=== PATIENT | female | born 1955 | race Caucasian/White ===

== ENCOUNTER → 2021-03-08 13:40 | Outpatient (CLI) | payer MEDICARE, SELFPAY ==
--- NOTE | 2021-03-08 13:47 | CT_ITS ---
STUDY: CT ABDOMEN AND PELVIS WITHOUT CONTRAST REASON FOR EXAM: Female, 65 years old. KIDNEY STONES R/ FLANK PAIN/ UTI RADIATION DOSAGE (If Supplied By Facility): CTDIvol = ( 24.92 ) mGy, DLP = ( 1300.97 ) mGycm TECHNIQUE: Transaxial images were obtained from the dome of the diaphragm to the symphysis pubis without oral contrast, and without intravenous contrast. Sagittal and coronal images were reconstructed. Individualized dose optimization techniques were used for this CT. COMPARISON: None. FINDINGS: Minimal increased markings in the lingular segment of the left upper lobe suggestive of mild atelectasis and/or scarring. Coronary artery calcification. Normal liver. Normal gallbladder and extrahepatic biliary system. Normal spleen. Normal pancreas. Normal bilateral adrenal glands. Normal right kidney. There is a 1.4 cm hypodensity in the upper pole of the left kidney suggestive of possible cyst. Normal visualized stomach. Normal small intestine. There are scattered colonic diverticula consistent with diverticulosis. There is non-visualization of the appendix. There is atherosclerotic calcification of the abdominal aorta and its major visceral branches, without a demonstrated aneurysm. Normal inferior vena cava. Normal retroperitoneum. Normal urinary bladder. There is absence of the uterus consistent with a prior hysterectomy. Normal abdominal wall. There are diffuse degenerative changes of the visualized lumbar spine. Mild degree of anterior listhesis of L4 on L5 without spondylolysis. Facet joint osteoarthritis. CT/Abdomen/Pelvis without Cont IMPRESSION: Possible cyst in the upper pole of the left kidney. Electronically Signed: Tae Juarez MD at 14:46 EDT , Service support ,
== END ==
PROVIDERS: Referring Provider Urology; Visit Provider Urology
DX: N39.0 Urinary tract infection, site not specified (principal); R10.9 Unspecified abdominal pain; N20.0 Calculus of kidney
CPT/HCPCS: 74176

== ENCOUNTER 2022-01-15 13:07 | Observation (INO) | payer MEDICARE, SELFPAY ==
[2022-01-15] VITALS (10 sets, daily range): BP systolic 112–195; BP diastolic 56–83; PULSE 65–83; RESP 16–18; TEMP 35.9–36.7; O2SAT 95–98; BMI 43.9; BMI 45.6
--- NOTE | 2022-01-15 13:17 | EKG12_ITS ---
Test Reason : PALPS Blood Pressure : / mmHG Vent. Rate : 076 BPM Atrial Rate : 076 BPM P-R Int : 160 ms QRS Dur : 094 ms QT Int : 412 ms P-R-T Axes : 061 -44 -32 degrees QTc Int : 463 ms Sinus rhythm with Premature supraventricular complexes Left axis deviation Left ventricular hypertrophy Nonspecific ST abnormality Abnormal ECG Confirmed by GELY JEFFRIES, ANA ([id number]), tape editor ISAIAH GUIDRY ([id number]) on 01/25/2022 1:24:04 PM Referred By: LOCO Confirmed By:ANA HONG MD
--- NOTE | 2022-01-15 13:19 | CT_ITS ---
STUDY: CT BRAIN WITHOUT CONTRAST REASON FOR EXAM: Female, 66 years old. Dizziness, blurred VISION RADIATION DOSAGE (If Supplied By Facility): CTDIvol = ( 44.99 ) mGy, DLP = ( 779.24 ) mGycm TECHNIQUE: Transaxial CT imaging of the brain was performed without administration of intravenous contrast material. Individualized dose optimization techniques were used for this CT. COMPARISON: No relevant priors. FINDINGS: Normal soft tissue structures. Normal calvarium. There is mild cerebral atrophy with widening of the extra-axial spaces and ventricular dilatation. There are areas of decreased attenuation within the white matter tracts of the supratentorial brain, consistent with microvascular disease changes. There are small punctate calcifications of the basal ganglia which are seen in the aging brain as a normal variant. Normal brainstem. Normal cerebellum. There is no intracranial hemorrhage. There are no findings of an acute ischemic infarction. Atherosclerotic calcification of the vertebral arteries and cavernous portions of the internal carotid arteries bilaterally. Normal visualized paranasal sinuses. CT/Brain/Head without Contrast IMPRESSION: Chronic involutional changes of the brain. Electronically Signed: Tae Juarez MD at 13:40 EDT ,
[2022-01-15 13:35] LABS: Absolute Lymphocyte Count 1.07 X10^3/uL (0.83-4.51); Absolute Neutrophil Count 3.6 X10^3/uL (2.0-7.7); Basophil# 0.02 X10^3/uL; Basophil% 0.4 % (0-1); Eosinophil# 0.16 X10^3/uL; Eosinophils% 3.1 % (0-5); Hematocrit 35.7 % (37-47); Hemoglobin 11.1 g/dL (12.0-15.0); Lymphocyte # 1.07 X10^3/ul (0.83-4.51); Lymphocyte % 20.5 % (19-41); Mean Corp Hgb Conc 31.1 g/dL (32-36); Mean Corpuscular Hgb 23.9 pg (27.0-32.0); Mean Corpuscular Volume 76.9 fL (81-99); Mean Platelet Vol. 8.8 fl (6.2-12.0); Monocyte# 0.36 X10^3/uL; Monocyte% 6.9 % (0-10); NRBC Flagged by Analyzer 0 % (0-5); Neutrophil # 3.59 X10^3/uL (2.7-7.7); Neutrophil % 68.7 % (47-70); Platelet Count 219 K/mm3 (150-450); RBC Distribution Width CV 14.3 % (11.6-14.6); RBC Distribution Width SD 39.4 fl (35.1-43.9); Red Blood Count 4.64 M/mm3 (4.2-5.4); White Blood Count 5.2 K/mm3 (4.4-11.0)
[2022-01-15 13:48] LABS: Anion Gap 4 (5-15); BUN 13 mg/dL (7-18); BUN/Creat Ratio 11.7 RATIO (10-20); Chloride 99 mmol/L (98-107); Creatinine, Serum 1.11 mg/dL (0.55-1.02); EST Glomerular Filtration Rate 52 mL/min (>60); Est Glom Filt Rate - Afr Amer 63 mL/min (>60); Estimated Creatinine Clearance 34.84 ml/min; Glucose 141 mg/dL (74-106); Potassium 3.4 mmol/L (3.5-5.1); Sodium Level 135 mmol/L (136-145)
--- NOTE | 2022-01-15 14:15 | EX.ED.DYSGE1 ---
HPI History of Present Illness Chief Complaint: Dizziness Informant: patient Onset/Context/Timing Onset: Today Current Severity: Mild Maximum Severity: Moderate Narrative Narrative: Patient presents secondary to dizziness and vision change. She states that she felt well when she went to bed at 11:30 PM last evening. When she woke at 830 this morning she reports blurred vision worse in her right eye and being off balance when she walked. She states she had to hold onto items that she was walking this morning. She had 2 episodes where she felt like her heart was racing for just a few seconds at a time. She states she is had that previously with no problem. [facility] Medical History Fibromyalgia GERD (gastroesophageal reflux disease) HTN (hypertension) Thyroid cancer, medullary carcinoma Home Medications albuterol sulfate 2.5 mg INHALATION Q6H PRN PRN 09/14/15 [History Last Taken Unknown] chlorthalidone 25 mg PO QODAY 09/14/15 [History Last Taken Unknown] gabapentin 300 mg PO 4X/DAY 09/14/15 [History Last Taken Unknown] omeprazole 20 mg PO DAILY 09/14/15 [History Last Taken Unknown] acetaminophen [Tylenol Arthritis] 650 mg PO PRN PRN 01/15/22 [History Last Taken Unknown] calcium 600 mg PO QHS 01/15/22 [History Last Taken Unknown] levothyroxine 125 mcg PO DAILY 01/15/22 [History Last Taken Unknown] magnesium 400 mg PO QHS 01/15/22 [History Last Taken Unknown] melatonin 30 mg PO QHS 01/15/22 [History Last Taken Unknown] metoprolol succinate 25 mg PO DAILY 01/15/22 [History Last Taken Unknown] naproxen sodium [Aleve] 220 mg PO BID PRN 01/15/22 [History Last Taken Unknown] tizanidine 2 mg PO QHS PRN PRN 01/15/22 [History Last Taken Unknown] trazodone 50 mg PO QHS 01/15/22 [History Last Taken Unknown] Allergy/AdvReac Type Severity Reaction Status Date / Time acetaminophen [From Percocet] Allergy Itching Verified 01/15/22 13:24 citalopram hydrobromide Allergy Itching Verified 01/15/22 13:24 [From Celexa] duloxetine HCl Allergy Itching Verified 01/15/22 13:24 [From Cymbalta] Gadolinium-MRI Contrast Allergy Hives Verified 01/15/22 13:24 Medium [MRI] Iodinated Contrast Media [CT] Allergy Hives Verified 01/15/22 13:24 milnacipran HCl Allergy Itching Verified 01/15/22 13:24 [From Savella] oxycodone HCl [From Percocet] Allergy Itching Verified 01/15/22 13:24 sertraline HCl [From Zoloft] Allergy Itching Verified 01/15/22 13:24 shellfish derived Allergy Hives Verified 01/15/22 13:24 Sulfa (Sulfonamide Allergy Hives Verified 01/15/22 13:24 Antibiotics) tramadol Allergy Itching Verified 01/15/22 13:24 Surgical History H/O thyroidectomy H/O: hysterectomy History of right shoulder replacement Hx of total knee replacement Social History Smoking Status: Never smoker ROS ROS ED Constitutional Constitutional ED: Denies chills or fever(s) Eyes Eyes: Reports blurry vision and change in vision ENT ENT ED: Denies sore throat Cardiovascular Cardiovascular: Reports racing heartbeat; Denies chest pain Respiratory/Chest Respiratory/Chest: Denies cough or dyspnea Gastrointestinal Gastrointestinal: Denies abdominal pain, nausea or vomiting Genitourinary Genitourinary ED: Denies dysuria Musculoskeletal Musculoskeletal: Denies back pain or neck pain Integumentary Denies rash Neurologic Neurologic: Denies headache(s), paresthesias or weakness Allergic/Immunologic Allergic/Immunologic ED: Denies urticaria EXAM Physical Exam Const Vital Signs: 01/15/22 13:08 01/15/22 13:11 01/15/22 13:51 Temperature 96.6 F L 96.6 F L Temperature Source Temporal Temporal Pulse Rate 83 83 Respiratory Rate 16 16 Respiratory Effort Normal Non-Labored Respiratory Pattern Normal Blood Pressure 195/82 H 195/82 H Blood Pressure Mean 119 119 Pulse Ox 97 97 Oxygen Delivery Method Room Air Room Air 01/15/22 14:00 Temperature Temperature Source Pulse Rate 67 Respiratory Rate 18 Respiratory Effort Respiratory Pattern Blood Pressure 149/75 H Blood Pressure Mean 99 Pulse Ox 98 Oxygen Delivery Method Room Air Positive well nourished and well developed General Appearance ED: well developed HEENT Reports moist mucous membranes Eyes PERRL and EOMs intact bilaterally Neck supple Chest Wall inspection of chest normal and palpation of chest normal Resp normal respiratory effort and clear to auscultation bilaterally Cardio regular rate and regular rhythm GI normal to inspection, nondistended, normoactive bowel sounds and non-tender Palpation: soft Extremity normal to inspection Neuro oriented x3 and no sensory deficits noted Neuro Narrative: NIH equals 0 at the time of my exam. Sensorium / Orientation: alert Motor Exam: strength 5/5 throughout Psych mental status grossly normal Skin no rashes or lesions noted MDM MDM MDM Narrative Medical decision making narrative: Lab work and head CT along with EKG obtained per nursing protocol. Lab Data Attestation: I reviewed the patient's lab results. Labs: Laboratory Results - last 24 hr 01/15/22 01/15/22 13:24 13:24 WBC 5.2 RBC 4.64 Hgb 11.1 L Hct 35.7 L MCV 76.9 L MCH 23.9 L MCHC 31.1 L RDW Std Deviation 39.4 RDW Coeff of Irma 14.3 Plt Count 219 MPV 8.8 Immature Gran % (Auto) 0.400 Neut % (Auto) 68.7 Lymph % (Auto) 20.5 [place] % (Auto) 6.9 Eos % (Auto) 3.1 Baso % (Auto) 0.4 Absolute Neuts (auto) 3.6 Absolute Lymphs (auto) 1.07 Nucleated RBC % 0 Sodium 135 L Potassium 3.4 L Chloride 99 Carbon Dioxide 32.0 Anion Gap 4 L BUN 13 Creatinine 1.11 H Estim Creat Clear Calc 34.84 Est GFR (MDRD) Af Amer 63 Est GFR (MDRD) Non-Af 52 L BUN/Creatinine Ratio 11.7 Glucose 141 H Calcium 8.0 L Radiography Diagnostic Testing: Clinical Impression(s) from Imaging Studies Brain CT 01/15/22 13:19 IMPRESSION: Chronic involutional changes of the brain. Electronically Signed: Tae Juarez MD at 13:40 EDT , EKG Initial EKG: Attestation: I personally reviewed and interpreted this EKG as follows: Interpretation: Sinus Rhythm (Sinus at 76 with no acute ischemia.) Treatment and Re-Evaluation Narrative: At the time of my evaluation patient states that she was able to ambulate to the restroom back and did feel improved. Earlier today she had to hold onto items to walk. Because she does have this associated with vision change I do have more concern for possible stroke. She was hypertensive on arrival 195/82 but blood pressure is improved to 150 systolic at this time. I do have concern for TIA. Patient has allergy to CT and MRI contrast. I did recommend observation for noncontrast MRI. I will speak with hospitalist. Discharge Plan Triage Chief Complaint: Dizziness ED Provider: Katie Pearson Dx/Rx/DC Orders Clinical Impression: Brain TIA Prescriptions: No Action albuterol sulfate 2.5 MG/3 ML solution for nebulization 2.5 mg inhalation Q6H PRN PRN (Reason: Dyspnea) RF: 0 omeprazole 20 MG capsule 20 mg PO DAILY RF: 0 chlorthalidone 50 MG tablet 25 mg PO QODAY RF: 0 gabapentin 300 MG capsule 300 mg PO 4X/DAY RF: 0 calcium 600 mg Capsule 600 mg PO QHS RF: 0 tizanidine 2 mg Tablet 2 mg PO QHS PRN PRN (Reason: Muscle Spasm) RF: 0 trazodone 50 mg Tablet 50 mg PO QHS RF: 0 acetaminophen [Tylenol Arthritis] 650 mg Tablet Extended Release 650 mg PO PRN PRN (Reason: Pain) RF: 0 levothyroxine 125 mcg tablet 125 mcg PO DAILY RF: 0 metoprolol succinate 25 mg tablet extended release 24 hr 25 mg PO DAILY RF: 0 magnesium 200 mg Tablet 400 mg PO QHS RF: 0 naproxen sodium [Aleve] 220 mg Capsule 220 mg PO BID PRN (Reason: Pain) RF: 0 melatonin 10 mg Tablet 30 mg PO QHS RF: 0 Referrals: ELIZABETH ALLEN [Other] Disposition Disposition: Acute Care Hospital [facility]
--- NOTE | 2022-01-15 14:38 | NURSING ---
DR THORNTON FOR DR GARCIA
--- NOTE | 2022-01-15 14:41 | ECHOD_ITS ---
Reason For Study: TIA/CVA Procedure This was a 2D Doppler, Color Flow transthoracic echocardiogram. The exam was of adequate technical quality. Exam performed portable in patient room. Left Ventricle Normal LV size. Mid cavitary false tendon noted. Sigmoid septum. Left ventricular systolic function is normal. The estimated ejection fraction is 65 %. No evidence for diastolic dysfunction. No regional wall motion abnormalities noted. Right Ventricle Normal RV size. Normal systolic function. Atria Normal left atrium. Normal right atrium. No doppler evidence for ASD. Bubble contrast study negative for right to left interatrial shunt. Mitral Valve There is moderate mitral annular calcification. Extension of the mitral annular calcification onto the base of the posterior mitral valve leaflet. Mild (1+) mitral valve insufficiency. Tricuspid Valve Normal tricuspid valve. Mild tricuspid valve insufficiency. Right ventricular systolic pressure estimated to be 29 mmHg. Aortic Valve Trisinus/trileaflet aortic valve. Normal aortic valve. Mild (1+) aortic valve insufficiency. Pulmonic Valve The pulmonic valve is not well visualized. Trivial pulmonic valve insufficiency. Great Vessels Normal sized aortic root. Pericardium/Pleural No pericardial effusion. Medication Performed a rapid injection of agitated mix of 9 cc saline and 1cc air to assess for atrial septal defect. MMode/2D Measurements & Calculations LVIDd: 4.5 cm IVSd: 0.86 cm Ao root diam: 3.3 cm LVIDs: 2.2 cm LVPWd: 1.0 cm RVDd: 4.1 cm FS: 50.6 % LAV(MOD-bp): 57.4 ml LVAd ap4: 28.7 cm2 LVAd ap2: 30.1 cm2 LAV(MOD-bp) Indexed: 29.3 ml/m2 LVLd ap4: 8.0 cm LVLd ap2: 7.7 cm LAV(MOD-sp2): 61.8 ml EDV(MOD-sp4): 85.9 ml EDV(MOD-sp2): 93.6 ml LAV(MOD-sp4): 50.6 ml EDV(sp4-el): 87.7 ml EDV(sp2-el): 99.1 ml LVAs ap4: 16.0 cm2 LVAs ap2: 15.3 cm2 LVLs ap4: 6.7 cm LVLs ap2: 6.3 cm ESV(MOD-sp4): 34.2 ml ESV(MOD-sp2): 30.9 ml ESV(sp4-el): 32.4 ml ESV(sp2-el): 31.8 ml EF(MOD-sp4): 60.2 % EF(MOD-sp2): 67.0 % EF(sp4-el): 63.1 % SV(MOD-sp4): 51.7 ml SV(MOD-sp2): 62.7 ml SV(sp4-el): 55.3 ml LA A4 area: 18.4 cm2 LA dimension(2D): 3.7 cm RA A4 area: 14.5 cm2 Doppler Measurements & Calculations MV E max uri: 91.3 cm/sec Ao V2 max: 172.2 cm/sec AI max uri: 355.7 cm/sec MV A max uri: 130.0 cm/sec Ao max P.9 mmHg AI max P.6 mmHg MV E/A: 0.70 AI dec slope: 113.4 cm/sec2 AI P1/2t: 918.8 msec LV V1 max: 124.3 cm/sec PA V2 max: 131.0 cm/sec TR max uri: 254.2 cm/sec LV V1 max P.2 mmHg TR max P.9 mmHg ECHO/Echo Complete Interpretation Summary Left ventricular systolic function is normal. The estimated ejection fraction is 65 %. Mid cavitary false tendon noted. Sigmoid septum. There is moderate mitral annular calcification. Extension of the mitral annular calcification onto the base of the posterior mi tral valve leaflet. Mild (1+) mitral valve insufficiency. Mild tricuspid valve insufficiency. Mild (1+) aortic valve insufficiency. Trivial pulmonic valve insufficiency. Right ventricular systolic pressure estimated to be 29 mmHg. No evidence for diastolic dysfunction. Bubble contrast study negative for right to left interatrial shunt. Ordering Physician: Kayli Osman Performed By: Krystal Evans RCS
--- NOTE | 2022-01-15 14:41 | NURSING ---
PCU OBS NORBERTO TIA
--- NOTE | 2022-01-15 15:23 | ED.RN ---
Tala taking pt to MRI then taking her to the floor, gave TANJA Edgar 2 mg bottle of lorazepam to medicate her in MRI.
[2022-01-15] MEDS: LORazepam 2 MG/ML Syringe 1 MG IV (15:29)
--- NOTE | 2022-01-15 15:35 | MRI_ITS ---
EXAM: MR HEAD WITHOUT INTRAVENOUS CONTRAST CLINICAL INDICATION: stroke TECHNIQUE: Multiplanar and multisequence MR images of the brain were obtained without intravenous contrast. This report was created using [employer] report generation technology. COMPARISON: ct of the same day FINDINGS: BRAIN AND EXTRA-AXIAL SPACES: Chronic involutional changes of the brain. No intra- or extra-axial hemorrhage. No evidence of acute infarct. No intracranial mass or mass effect. There is preservation of the way/white matter interface. Posterior fossa structures are unremarkable. Ventricles are appropriate for age. No hydrocephalus. Basal cisterns are patent. SELLA: Unremarkable. Normal sella turcica, pituitary gland, infundibular stalk, optic chiasm and hypothalamus. AUDITORY SYSTEM: Unremarkable. The internal auditory canals are patent. BONES/JOINTS: Unremarkable. No discrete lytic or blastic abnormalities. SINUSES: Unremarkable as visualized. Clear. MASTOID AIR CELLS: Unremarkable as visualized. Clear. ORBITS: Unremarkable as visualized. Both globes, extraocular muscles, optic nerves and retrobulbar fat appear unremarkable. VASCULATURE: Unremarkable as visualized. Normal flow voids in the major intracranial circulation. MRI/Brain without Contrast IMPRESSION: Chronic involutional changes of the brain. Electronically Signed: Christofer Friedman MD at 16:19 EDT ,
--- NOTE | 2022-01-15 16:06 | NURSING ---
patient tolerated mri well. will be transported to pcu from mri by this rn now.
--- NOTE | 2022-01-15 17:26 | PCM.HP.STD ---
HPI - General General Date of Admission: 01/15/22 Date of Service: 01/15/22 Chief Complaint: Blurred vision/lightheadedness HPI Narrative KEELY WASSERMAN, is a 66 F who presented to the emergency department [facility] on 01/15/2022 with a chief complaint of blurred vision and lightheadedness since she woke up this morning. The patient states she was last known well before she went to bed last evening and woke up this morning with some mildly blurred vision that has been improving throughout the day and some lightheadedness. She initially complained of dizziness however she states that there was no spinning of the world around her or her spinning around the world. She states its been fairly constant and unrelenting however has improved since arrival in the emergency department. Her symptoms started at 830 this morning and she reported that her right eye was worse than her left eye. She also indicated that she has been having some off balance episodes while she has been walking and this has been fairly dramatic for her. She also complained of some palpitations/heart racing that has occurred for just seconds at a time and she has never experienced this before. She does indicate she has had the blurred vision and some lightheadedness previously but nothing that has persisted as long as this has. In the emergency department her overall vital signs had been fairly unremarkable other than elevated blood pressure of 195/82 on presentation. Her blood pressure did improve with her course in the emergency department and at the time of my evaluation was 149/75. Her CBC shows a chronic stable microcytic anemia with actual improvement of her hemoglobin. Her chemistry panel showed a sodium of 135, potassium of 3.4, serum creatinine of 1.1 which appears to be her baseline, slightly elevated glucose at 141. Her EKG is overall unremarkable and shows normal sinus rhythm with no ST-T changes consistent with acute ischemia. A CT of her brain was performed and showed chronic involutional changes of her brain but no acute abnormalities were identified. [facility] Medical History Chest pain Fibromyalgia GERD (gastroesophageal reflux disease) HTN (hypertension) Kidney stones Non-smoker Thyroid cancer, medullary carcinoma Home Medications albuterol sulfate 2.5 mg INHALATION Q6H PRN PRN 09/14/15 [History Last Taken Unknown] chlorthalidone 25 mg PO QODAY 09/14/15 [History Last Taken 04/02/22] gabapentin 600 mg PO BID 09/14/15 [History Last Taken 01/14/22] omeprazole 20 mg PO DAILY 09/14/15 [History Last Taken 01/14/22] acetaminophen [Tylenol Arthritis] 1,300 mg PO QHS 01/15/22 [History Last Taken 01/14/22] calcium 600 mg PO QHS 01/15/22 [History Last Taken 01/14/22] levothyroxine 125 mcg PO DAILY 01/15/22 [History Last Taken 01/15/22] magnesium 400 mg PO QHS 01/15/22 [History Last Taken 01/14/22] melatonin 30 mg PO QHS 01/15/22 [History Last Taken 01/14/22] metoprolol succinate 25 mg PO DAILY 01/15/22 [History Last Taken 01/15/22] naproxen sodium [Aleve] 220 mg PO BID PRN 01/15/22 [History Last Taken Unknown] tizanidine 2 mg PO QHS PRN PRN 01/15/22 [History Last Taken 01/14/22] trazodone 50 mg PO QHS 01/15/22 [History Last Taken 01/14/22] Allergy/AdvReac Type Severity Reaction Status Date / Time acetaminophen [From Percocet] Allergy Itching Verified 01/15/22 13:24 citalopram hydrobromide Allergy Itching Verified 01/15/22 13:24 [From Celexa] duloxetine HCl Allergy Itching Verified 01/15/22 13:24 [From Cymbalta] Iodinated Contrast Media [CT] Allergy Hives Verified 01/15/22 13:24 milnacipran HCl Allergy Itching Verified 01/15/22 13:24 [From Savella] oxycodone HCl [From Percocet] Allergy Itching Verified 01/15/22 13:24 sertraline HCl [From Zoloft] Allergy Itching Verified 01/15/22 13:24 shellfish derived Allergy Hives Verified 01/15/22 13:24 Sulfa (Sulfonamide Allergy Hives Verified 01/15/22 13:24 Antibiotics) tramadol Allergy Itching Verified 01/15/22 13:24 Family History (Updated 01/15/22 @ 17:[address] Kayli Osman DO) Other CAD (coronary artery disease) Hypertension Surgical History H/O thyroidectomy H/O: hysterectomy History of right shoulder replacement Hx of total knee replacement Social History (Updated 01/15/22 @ 17:[address] Kayli Osman DO) Smoking Status: Never smoker alcohol intake: current alcohol intake frequency: holidays/special occasions only substance use type: does not use ROS Constitutional Constitutional: Denies anorexia, change in weight, chills, fatigue, fever(s), malaise, night sweats, weakness or other Eyes Eyes: Reports blurry vision and change in vision; Denies change in eye color, discharge from eye(s), double vision, erythema, eye pain, loss of vision or other ENT HEENT: Denies abnormal hearing, dysphagia, ear pain, epistaxis, headache(s), hearing loss, nasal congestion, nasal discharge, post nasal drip, sinus pressure, sore throat or other Cardiovascular Cardiovascular: Reports lightheadedness; Denies chest pain, claudication, dyspnea on exertion, edema, orthopnea, palpitations, paroxysmal nocturnal dyspnea, rapid heart rate, syncope or other Respiratory/Chest Respiratory/Chest: Denies cough, dyspnea, excessive phlegm production, hemoptysis, productive cough, shortness of breath at rest, shortness of breath with exertion, wheezing or other Gastrointestinal Gastrointestinal: Denies abdominal pain, coffee ground emesis, constipation, diarrhea, dyspepsia, hematemesis, hematochezia, loose stools, melena, nausea, vomiting or other Genitourinary Genitourinary: Denies burning urination, difficulty urinating, dysuria, hematuria, nocturia, urinary frequency, urinary hesitancy, urinary incontinence, urinary urgency or other Musculoskeletal Musculoskeletal: Denies arthralgias, back pain, joint pain, joint stiffness, joint swelling, myalgias, neck pain or other Neurologic Neurologic: Reports dizziness; Denies abnormal gait, abnormal speech, confusion, disequilibrium, focal weakness, headache(s), numbness, paresthesias, seizure-like activity, seizures, syncope, tingling, tremor(s) or other Psychiatric Psychiatric: Reports anxiety; Denies depression, homicidal ideation, suicidal ideation or other Endocrine Endocrinology: Denies change in body appearance, cold intolerance, excessive sweating, heat intolerance, polydipsia, polyuria or other Hematologic/Lymphatic Hematologic/Lymphatic: Denies anemia, easy bleeding, easy bruising, lymphadenopathy or other Allergic/Immunologic Allergic/Immunologic: Denies rhinitis, hives, eczemia, asthma or other Vital Signs Vital Signs Vital Signs: 01/15/22 13:08 01/15/22 13:11 01/15/22 13:51 Temperature 96.6 F L 96.6 F L Temperature Source Temporal Temporal Pulse Rate 83 83 Respiratory Rate 16 16 Respiratory Effort Normal Non-Labored Respiratory Pattern Normal Blood Pressure 195/82 H 195/82 H Blood Pressure Mean 119 119 Blood Pressure Source Blood Pressure Position Blood Pressure Location Pulse Ox 97 97 Oxygen Delivery Method Room Air Room Air 01/15/22 14:00 01/15/22 15:00 01/15/22 15:39 Temperature 97.4 F L Temperature Source Temporal Pulse Rate 67 66 80 Respiratory Rate 18 17 16 Respiratory Effort Respiratory Pattern Blood Pressure 149/75 H 112/56 L 158/83 H Blood Pressure Mean 99 74 108 Blood Pressure Source Monitor Blood Pressure Position Supine Blood Pressure Location Left Arm Pulse Ox 98 96 97 Oxygen Delivery Method Room Air Room Air Room Air 01/15/22 15:54 Temperature Temperature Source Pulse Rate 66 Respiratory Rate 16 Respiratory Effort Respiratory Pattern Blood Pressure 146/63 H Blood Pressure Mean 90 Blood Pressure Source Monitor Blood Pressure Position Supine Blood Pressure Location Left Arm Pulse Ox 97 Oxygen Delivery Method Room Air Weight Weight: 102.058 kg Body Mass Index (BMI) 43.9 Physical Exam Const alert, oriented x3, no apparent distress, average body habitus, healthy appearing and well nourished Constitutional Narrative: Upper middle-aged white female sitting up in bed, morbidly obese, appears comfortable, nontoxic, at bedside General Appearance: cooperative HEENT normocephalic, head/scalp atraumatic, hearing grossly normal bilaterally and moist oral mucous membranes HEENT Narrative: Mallampati is 3, no thrush, dentures in place Eyes PERRL, EOMs intact bilaterally and conjunctivae normal Eyes Narrative: No scleral icterus Neck no lymphadenopathy, supple, no JVD and no carotid bruits Neck Narrative: Trachea midline, thyroid is absent, old surgical incision noted Resp normal respiratory effort, no retractions, no use of accessory muscles and clear to auscultation bilaterally Auscultation: Negative for crackles, rales, rhonchi or wheezes Cardio regular rate, regular rhythm, S1 normal heart sound, S2 normal heart sound, no murmurs, no rub, no gallops, no clicks and no JVD GI normal to inspection, nondistended, normoactive bowel sounds, soft to palpation, non-tender and non-distended; Negative for hepatosplenomegaly Extremity no clubbing, cyanosis or edema Peripheral Pulses: Yes pulses 2+ throughout Skin no rashes or lesions noted, no wounds, skin turgor normal, no jaundice, no petechiae and no mottling Neuro oriented x3, CN's II-XII intact bilaterally, moves all extremities and no focal motor deficits Neuro Narrative: Reflexes are 2+ bilateral upper and lower extremities, no clonus, no dysmetria Sensorium / Orientation: awake and alert Speech: speech normal Motor Exam: strength 5/5 throughout Psych affect normal Psych Narrative: Appropriately interactive Results Lab / Micro Data Attestation: I reviewed the patient's lab results. Result Diagrams: 01/15/22 13:24 01/15/22 13:24 Labs: Laboratory Results - last 24 hr 01/15/22 13:24: WBC 5.2, RBC 4.64, Hgb 11.1 L, Hct 35.7 L, MCV 76.9 L, MCH 23.9 L, MCHC 31.1 L, RDW Std Deviation 39.4, RDW Coeff of Irma 14.3, Plt Count 219, MPV 8.8, Immature Gran % (Auto) 0.400, Neut % (Auto) 68.7, Lymph % (Auto) 20.5, Webster % (Auto) 6.9, Eos % (Auto) 3.1, Baso % (Auto) 0.4, Absolute Neuts (auto) 3.6, Absolute Lymphs (auto) 1.07, Nucleated RBC % 0 01/15/22 13:24: Sodium 135 L, Potassium 3.4 L, Chloride 99, Carbon Dioxide 32.0, Anion Gap 4 L, BUN 13, Creatinine 1.11 H, Estim Creat Clear Calc 34.84, Est GFR (MDRD) Af Amer 63, Est GFR (MDRD) Non-Af 52 L, BUN/Creatinine Ratio 11.7, Glucose 141 H, Calcium 8.0 L Radiology Impression Brain CT 01/15/22 13:19 IMPRESSION: Chronic involutional changes of the brain. Electronically Signed: Tae Juarez MD at 13:40 EDT , Brain MRI 01/15/22 15:35 IMPRESSION: Chronic involutional changes of the brain. Electronically Signed: Christofer Friedman MD at 16:19 EDT , Assessment & Plan Assessment/Plan (1) Lightheadedness: (2) Blurred vision: (3) Hypokalemia: (4) Morbid obesity: PLAN: Blurred vision/lightheadedness -Patient woke up with the symptoms and they have persisted throughout the day -Admitted for stroke rule out with history of HTN and age -Check lipids -A1c -Check MRI of brain -Echocardiogram -We will perform carotid ultrasounds as patient has allergies to IVP dye as well as gadolinium and that makes us unable to perform an MRA or CTA -NIH's -Overall suspicion for stroke is fairly low -Aspirin 81 mg daily -Consider SOC neurology consultation depending on symptoms and diagnostic imaging Hypokalemia -60 mEq p.o. potassium -Repeat BMP in a.m. -Check a.m. magnesium and phosphorus level Hypertension -Continue home chlorthalidone every other day -Continue home metoprolol -Hold naproxen GERD -Continue PPI History of thyroid cancer status post thyroidectomy with resultant hypothyroidism -Continue levothyroxine -Check TSH Chronic pain secondary to fibromyalgia -Continue gabapentin 600 mg p.o. twice daily -Continue tizanidine Morbid obesity -Recommend weight loss -Complicates prognosis, treatment, outcomes Insomnia -Continue home trazodone -We will continue melatonin however home daily dose is reported at 30 mg which is 3 times the recommended dose and we will therefore just give 10 mg here -She may need to consider an alternative to melatonin for sleep aid DVT prophylaxis -Lovenox 40 mg grams subcu daily -SCDs CODE STATUS -Full code as per discussion in the emergency department Charges/Coding Visit Charges Inpatient E&M: 91559 Init Hosp L3
[2022-01-15] MEDS: Potassium Chloride Oral Tablet 20 MEQ 60 MEQ PO (18:20)
[2022-01-15] MEDS: Gabapentin 300 MG Capsule PO ×2 (18:20→22:01)
[2022-01-15] MEDS: Acetaminophen 325 MG Tablet 650 MG PO (19:54)
[2022-01-15] MEDS: MELATONIN 10 MG TABLET PO (22:00)
[2022-01-15] MEDS: Magnesium Chloride 64 MG Delay Rel.Tablet 128 MG PO (22:00)
[2022-01-15] MEDS: traZODone 50 MG Tablet PO (22:00)
[2022-01-16] VITALS (10 sets, daily range): BP systolic 120–168; BP diastolic 52–69; PULSE 68–86; RESP 12–16; TEMP 36.2–36.8; O2SAT 94–98; BMI 45.6
[2022-01-16] MEDS: Levothyroxine 125 MCG Tablet PO (05:51)
--- NOTE | 2022-01-16 05:55 | CDU_ITS ---
Reason For Study: dizziness Rt. Velocities/BP Lt. Velocities/BP Prox CCA 89.1/14.7 cm/sec. Prox CCA 70.6/14.6 cm/sec. Mid CCA 59.1/14.7 cm/sec. Mid CCA 69.6/20.1 cm/sec. Dist CCA 69.5/18.6 cm/sec. Dist CCA 62.9/25.6 cm/sec. Prox ICA 71.7/22.3 cm/sec. Prox ICA 76.1/24.5 cm/sec. Mid ICA 69.5/22.3 cm/sec. Mid ICA 105.3/41.0 cm/sec. Dist ICA 110.2/28.2 cm/sec. Dist ICA 113.8/33.4 cm/sec. Rt. ICA/CCA = 1.9. Lt. ICA/CCA = 1.6. Prox ECA 180.6/13.8 cm/sec. Prox ECA 67.4/6.9 cm/sec. Rt. Vert. 50.4/10.7 cm/sec. Lt. Vert. 83.4/25.8 cm/sec. Right Extracranial There is intimal thickening but no significant atherosclerotic plaque noted in the right common carotid artery. There is heterogeneous, irregular atherosclerotic plaque noted in the right internal carotid artery. The right internal carotid artery is very tortuous. There is heterogeneous, irregular atherosclerotic plaque noted in the right external carotid artery. Antegrade flow is noted in the right vertebral artery. Left Extracranial There is intimal thickening but no significant atherosclerotic plaque noted in the left common carotid artery. There is intimal thickening but no significant atherosclerotic plaque noted in the left internal carotid artery. The left internal carotid artery is very tortuous. There is intimal thickening but no significant atherosclerotic plaque noted in the left external carotid artery. Antegrade flow is noted in the left vertebral artery. Procedure Carotid Duplex 46219. This is a Carotid Duplex examination using B-mode, color flow and specral Doppler. The exam was diagnostic. Exam performed portable in patient room. VL/Carotid Duplex Ultrasound Interpretation Summary Mild (<50%) stenosis right extracranial internal carotid. No significant athero sclerotic plaque or stenosis noted in the left internal carotid artery. Flow within the vertebral a rteries is antegrade bilaterally. Ordering Physician: Kayli Osman Performed By: Ish Mendoza RVT
[2022-01-16 06:21] LABS: Absolute Neutrophil Count 3.1 X10^3/uL (2.0-7.7); Basophil# 0.02 X10^3/uL; Basophil% 0.4 % (0-1); Eosinophil# 0.16 X10^3/uL; Eosinophils% 3.2 % (0-5); Hematocrit 29.6 % (37-47); Hemoglobin 9.5 g/dL (12.0-15.0); Lymphocyte % 26.3 % (19-41); Mean Corp Hgb Conc 32.1 g/dL (32-36); Mean Corpuscular Hgb 24.2 pg (27.0-32.0); Mean Corpuscular Volume 75.3 fL (81-99); Mean Platelet Vol. 9.6 fl (6.2-12.0); Monocyte# 0.41 X10^3/uL; Monocyte% 8.3 % (0-10); NRBC Flagged by Analyzer 0 % (0-5); Neutrophil # 3.05 X10^3/uL (2.7-7.7); Neutrophil % 61.6 % (47-70); Platelet Count 207 K/mm3 (150-450); RBC Distribution Width CV 14.3 % (11.6-14.6); Red Blood Count 3.93 M/mm3 (4.2-5.4)
[2022-01-16 06:58] LABS: Phosphorus 3.9 mg/dL (2.5-4.9)
[2022-01-16 07:05] LABS: ALB/GLOB Ratio 0.8 RATIO (0.9-2.4); AST(SGOT) 16 U/L (15-37); Alanine Aminotransfer ALT/SGPT 17 U/L (13-56); Albumin, Serum 2.7 g/dL (3.2-5.0); Alkaline Phosphatase 93 U/L (45-117); Anion Gap 4 (5-15); BUN 12 mg/dL (7-18); BUN/Creat Ratio 14.5 RATIO (10-20); Calcium,Total 7.4 mg/dL (8.5-10.1); Chloride 104 mmol/L (98-107); Cholesterol 154 mg/dL (200); Creatinine, Serum 0.83 mg/dL (0.55-1.02); EST Glomerular Filtration Rate 73 mL/min (>60); Est Glom Filt Rate - Afr Amer 88 mL/min (>60); Estimated Creatinine Clearance 108.04 ml/min; Globulin 3.6 g/dL (2.2-4.2); Glucose 94 mg/dL (74-106); High Density Lipoprotein 46 mg/dL; Potassium 3.7 mmol/L (3.5-5.1); Protein, Total 6.3 g/dL (6.4-8.2); Sodium Level 138 mmol/L (136-145); Thyroid Stim Hormone (TSH) 0.33 uIU/mL (0.358-3.74); Triglycerides 76 mg/dL; Very Low Density Lipoprotein 15 mg/dL (5-40)
[2022-01-16] MEDS: Metoprolol(XL)Succ 25 MG Tablet PO (08:48)
[2022-01-16] MEDS: Gabapentin 300 MG Capsule PO ×2 (08:48→13:25)
[2022-01-16] MEDS: Enoxaparin 40 MG/0.4 ML Syringe SC (08:48)
[2022-01-16] MEDS: Pantoprazole Sodium 20 MG Tablet PO (08:48)
[2022-01-16] MEDS: Aspirin 81 MG TAB.CHEW PO (08:48)
--- NOTE | 2022-01-16 10:21 | CASEMGMT ---
Pt's MRI brain was neg and pt has been up ad deja in room. CM to follow for any further discharge planning/needs. SStpk AGRAWAL CM
[2022-01-16] MEDS: Loratadine 10 MG Tablet PO (10:53)
[2022-01-16 11:09] LABS: Bacteria 0 SEEN /hpf (None Seen); Mucous, Urine 0 SEEN /hpf (<or=2+); Red Blood Cells-Urine 0 SEEN /hpf (0-5); White Blood Cells 0 SEEN /hpf (0-5)
[2022-01-16 11:11] LABS: Color, Urine Yellow (Yellow); Glucose, Dipstick Normal (Normal); Ketone-Dipstick Negative (Negative); Leukocyte Esterase-Dipstick Negative /ul (Negative); Nitrite-Dipstick Negative (Negative); Occult Blood-Urine Negative /ul (Negative); Protein-Dipstick Negative (Negative); Specific Gravity, Urine 1.005 (1.002-1.030); Urine Bilirubin Dipstick Negative (Negative); Urine Clarity Clear (Clear); Urine Urobilinogen Normal (Normal)
[2022-01-16 11:20] LABS: Squamous Epithelial Cells - UA 0-5 SEEN /hpf (5-10)
--- NOTE | 2022-01-16 13:07 | DCINST_ITS ---
Discharge Instructions Diet Discharge Diet: No restrictions Activity Discharge Activity: Return to Normal Activity Weight Bearing Status: Weight bearing as tolerated Dressing / Incision Call your doctor if you observe: Fever of 101 or Higher, Numbness or Tingling, Shortness of breath, Dizziness, Chest pain, Increased palpitations (irregular heartbeat) and Calf discomfort Follow Up Care Please Follow Up With: Primary care provider When: Within the next two weeks. Test Results: Test results from this visit will be discussed in further detail at your follow-up appointment, if applicable. Discharge Plan Admission Admit Date/Time: 01/15/22 14:34 Primary Reason for Your Visit: Blurred vision Attending Provider: George Hayward Instructions Additional Instructions / Restrictions: * Follow up with your Administrative Appeals Tribunal Member in regards to your blurry vision. Discharge Orders/Prescriptions Prescriptions: Continued albuterol sulfate 2.5 MG/3 ML solution for nebulization 2.5 mg inhalation Q6H PRN PRN (Reason: Dyspnea) RF: 0 omeprazole 20 MG capsule 20 mg PO DAILY RF: 0 chlorthalidone 50 MG tablet 25 mg PO QODAY RF: 0 gabapentin 300 MG capsule 600 mg PO BID RF: 0 calcium 600 mg Capsule 600 mg PO QHS RF: 0 tizanidine 2 mg Tablet 2 mg PO QHS PRN PRN (Reason: Muscle Spasm) RF: 0 trazodone 50 mg Tablet 50 mg PO QHS RF: 0 acetaminophen 650 mg Tablet Extended Release 1,300 mg PO QHS RF: 0 levothyroxine 125 mcg tablet 125 mcg PO DAILY RF: 0 metoprolol succinate 25 mg tablet extended release 24 hr 25 mg PO DAILY RF: 0 magnesium 200 mg Tablet 400 mg PO QHS RF: 0 naproxen sodium [Aleve] 220 mg Capsule 220 mg PO BID PRN (Reason: Pain) RF: 0 melatonin 10 mg Tablet 30 mg PO QHS RF: 0 Referrals / Follow Up: ELIZABETH ALLEN [Other] - Within 2 Weeks Disposition Disposition (needs filled in before D/C Order can be placed): Home, Self Care
--- NOTE | 2022-01-16 14:47 | PCM.DC.SUM ---
Documented by User: Giovani ESCALANTE 01/16/22 15:51 Providers Date of Admission: 01/15/22 Date of Discharge: 01/16/22 Primary Care Physician: ELIZABETH ALLEN Reason For Visit: DIZZINESS AND BLURRED VISION Diagnosis Discharge Diagnosis (1) Lightheadedness: Status: Acute Code(s): R42 - Dizziness and giddiness (2) Blurred vision: Status: Acute Code(s): H53.8 - Other visual disturbances (3) Hypokalemia: Status: Acute Code(s): E87.6 - Hypokalemia (4) Morbid obesity: Status: Acute Code(s): E66.01 - Morbid (severe) obesity due to excess calories Medications at Discharge Home Medications albuterol sulfate 2.5 mg INHALATION Q6H PRN PRN 09/14/15 chlorthalidone 25 mg PO QODAY 09/14/15 gabapentin 600 mg PO BID 09/14/15 omeprazole 20 mg PO DAILY 09/14/15 acetaminophen 1,300 mg PO QHS 01/15/22 calcium 600 mg PO QHS 01/15/22 levothyroxine 125 mcg PO DAILY 01/15/22 magnesium 400 mg PO QHS 01/15/22 melatonin 30 mg PO QHS 01/15/22 metoprolol succinate 25 mg PO DAILY 01/15/22 naproxen sodium [Aleve] 220 mg PO BID PRN 01/15/22 tizanidine 2 mg PO QHS PRN PRN 01/15/22 trazodone 50 mg PO QHS 01/15/22 Hospital Course Summary of Care Provided Minutes Spent on Discharge: 20 Hospital Course: Patient is a 66-year-old female who presented to the ED at [facility] [place] on 01/16/2022 for evaluation management of lightheadedness with right-sided blurred vision. Patient was admitted for stroke work-up which was unremarkable. Carotid duplex ultrasound was obtained and did not reveal any severe stenosis in the right or left ICA. There was sufficient flow noted in the vertebral arteries. Echocardiogram obtained and demonstrated normal LV systolic function, an EF of 65%, and RVSP of 29 mmHg, no evidence of diastolic dysfunction and negative bubble study. Laboratory work-up was unremarkable to include CBC, BMP and UA. 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 Patient seen by Giovani Peters PA-C, under the supervision of Dr Hayward. Time spent on patient care: 20 minutes. Physical Exam Narrative Patient is a 66-year-old female comfortably resting in bed, alert and orient x3. Patient reports that her lightheadedness has resolved from admission. Although still reports that she has some blurry vision in her right eye. Const alert, oriented x3 and no apparent distress HEENT normocephalic, head/scalp atraumatic and hearing grossly normal bilaterally Eyes conjunctivae normal Neck no lymphadenopathy, supple and no JVD Resp normal respiratory effort, no retractions and no use of accessory muscles Cardio regular rate, regular rhythm and no JVD GI normal to inspection, nondistended, normoactive bowel sounds Extremity normal to inspection Skin no rashes or lesions noted Neuro CN's II-XII intact bilaterally Psych affect normal Weight / BMI Weight Weight: 232 lb 9.403 oz Body Mass Index (BMI) 45.6 ABG / Lab / Microbiology Data Result Diagrams: 01/16/22 05:40 01/16/22 05:40 Laboratory: Laboratory Results - last 24 hr 01/16/22 05:40: Hemoglobin A1c 6.0 H 01/16/22 05:40: WBC 5.0, RBC 3.93 L, Hgb 9.5 L, Hct 29.6 L, MCV 75.3 L, MCH 24.2 L, MCHC 32.1, RDW Std Deviation 39.0, RDW Coeff of Irma 14.3, Plt Count 207, MPV 9.6, Immature Gran % (Auto) 0.200, Neut % (Auto) 61.6, Lymph % (Auto) 26.3, [place] % (Auto) 8.3, Eos % (Auto) 3.2, Baso % (Auto) 0.4, Absolute Neuts (auto) 3.1, Absolute Lymphs (auto) 1.30, Nucleated RBC % 0 01/16/22 05:40: Sodium 138, Potassium 3.7, Chloride 104, Carbon Dioxide 30.0, Anion Gap 4 L, BUN 12, Creatinine 0.83, Estim Creat Clear Calc 108.04, Est GFR (MDRD) Af Amer 88, Est GFR (MDRD) Non-Af 73, BUN/Creatinine Ratio 14.5, Glucose 94, Calcium 7.4 L, Magnesium 2.0, Total Bilirubin 0.30, AST 16, ALT 17, Alkaline Phosphatase 93, Total Protein 6.3 L, Albumin 2.7 L, Globulin 3.6, Albumin/Globulin Ratio 0.8 L, Triglycerides 76, Cholesterol 154, LDL Cholesterol 93, VLDL Cholesterol 15, HDL Cholesterol 46, TSH 0.33 L 01/16/22 05:40: Phosphorus 3.9 01/16/22 10:54: Urine Color Yellow, Urine Clarity Clear, Urine pH 7.0, Ur Specific [place] 1.005, Urine Protein Negative, Urine Glucose (UA) Normal, Urine Ketones Negative, Urine Occult Blood Negative, Urine Nitrite Negative, Urine Bilirubin Negative, Urine Urobilinogen Normal, Ur Leukocyte Esterase Negative, Urine RBC 0 SEEN, Urine WBC 0 SEEN, Ur Squamous Epith Cells 0-5 SEEN, Urine Bacteria 0 SEEN, Urine Mucus 0 SEEN Radiography Diagnostic Testing: Radiology Impression Brain MRI 01/15/22 15:35 IMPRESSION: Chronic involutional changes of the brain. Electronically Signed: Christofer Friedman MD at 16:19 EDT Reading Location ID and State: [address] [place] [address] , Service support , Carotid Duplex 01/16/22 05:55 Interpretation Summary Mild (<50%) stenosis right extracranial internal carotid. No significant atherosclerotic plaque or stenosis noted in the left internal carotid artery. Flow within the vertebral arteries is antegrade bilaterally. Ordering Physician: Kayli Osman Performed By: Ish Mendoza, RVT D/C Instructions Discharge Diet: No restrictions Weight Bearing Status: Weight bearing as tolerated Call your doctor if you observe: Fever of 101 or Higher, Numbness or Tingling, Shortness of breath, Dizziness, Chest pain, Increased palpitations (irregular heartbeat) and Calf discomfort Please Follow Up With: Primary care provider When: Within the next two weeks. Meaningful Use Info Meaningful Use Diagnoses (Choose all that apply): None applicable Discharge Plan Admission Admit Date/Time: 01/15/22 14:34 Primary Reason for Your Visit: Blurred vision Attending Provider: George Hayward Instructions Additional Instructions / Restrictions: * Follow up with your [employer] in regards to your blurry vision. Discharge Orders/Prescriptions Prescriptions: Continued albuterol sulfate 2.5 MG/3 ML solution for nebulization 2.5 mg inhalation Q6H PRN PRN (Reason: Dyspnea) RF: 0 omeprazole 20 MG capsule 20 mg PO DAILY RF: 0 chlorthalidone 50 MG tablet 25 mg PO QODAY RF: 0 gabapentin 300 MG capsule 600 mg PO BID RF: 0 calcium 600 mg Capsule 600 mg PO QHS RF: 0 tizanidine 2 mg Tablet 2 mg PO QHS PRN PRN (Reason: Muscle Spasm) RF: 0 trazodone 50 mg Tablet 50 mg PO QHS RF: 0 acetaminophen 650 mg Tablet Extended Release 1,300 mg PO QHS RF: 0 levothyroxine 125 mcg tablet 125 mcg PO DAILY RF: 0 metoprolol succinate 25 mg tablet extended release 24 hr 25 mg PO DAILY RF: 0 magnesium 200 mg Tablet 400 mg PO QHS RF: 0 naproxen sodium [Aleve] 220 mg Capsule 220 mg PO BID PRN (Reason: Pain) RF: 0 melatonin 10 mg Tablet 30 mg PO QHS RF: 0 Referrals / Follow Up: ELIZABETH ALLEN [Other] - Within 2 Weeks Disposition Disposition (needs filled in before D/C Order can be placed): Home, Self Care Documented by User: Dr. George Hayward MD 01/16/22 15:59 Providers Date of Admission: 01/15/22 Reason For Visit: DIZZINESS AND BLURRED VISION Medications at Discharge Home Medications albuterol sulfate 2.5 mg INHALATION Q6H PRN PRN 09/14/15 chlorthalidone 25 mg PO QODAY 09/14/15 gabapentin 600 mg PO BID 09/14/15 omeprazole 20 mg PO DAILY 09/14/15 acetaminophen 1,300 mg PO QHS 01/15/22 calcium 600 mg PO QHS 01/15/22 levothyroxine 125 mcg PO DAILY 01/15/22 magnesium 400 mg PO QHS 01/15/22 melatonin 30 mg PO QHS 01/15/22 metoprolol succinate 25 mg PO DAILY 01/15/22 naproxen sodium [Aleve] 220 mg PO BID PRN 01/15/22 tizanidine 2 mg PO QHS PRN PRN 01/15/22 trazodone 50 mg PO QHS 01/15/22 Hospital Course Summary of Care Provided Hospital Course: This patient was seen in conjunction with BORIS Moffett. I have independently interviewed and examined the patient and reviewed pertinent history, examination findings, laboratory and plan of management. I have reviewed the note and agree with the documented findings with the few additional points. In brief, patient is admitted for dizziness, lightheadedness and loss of balance. She was admitted in PCU. Twelve-lead EKG normal sinus rhythm with no ST-T changes specific for acute ischemia. Chest CT brain does not show acute abnormality. Patient electrolytes in normal limit. A1c 6.0 suggestive of prediabetes. Patient denies any recent URI or flulike symptoms. Urine negative for pyuria, hematuria, LE and nitrite. Patient does not have dysuria or new lower Kang tract symptoms therefore UTI ruled out. 2D echo reported EF 65%, mild MR mild TR and mild AI. No evidence for diastolic dysfunction. MRI shows no acute infarct. Carotid duplex d reported mild less than 50% stenosis of right extracranial ICA. Discharge medication reconciliation done. Discharge follow-up instructions completed. Discharge process discussed with the patient and all questions were answered to patient's satisfaction. Total time spent, exact 35 minutes on discharge meds reconciliation, examination, coordination of care with nurses and ancillary staff, review of imaging and blood test and discussion with the patient on follow-up instructions. I have discussed my assessment with BORIS Moffett and orders have been reviewed. Physical Exam Narrative Seen and examined Patient admitted with dizziness but denies vertigo. During previous episode of dizziness and vertigo she had UTI. She has also loss of balance. When I saw her in the morning her symptoms have resolved. She is on baseline. Denies burning micturition or new lower urinary tract symptoms but requested to check for UA. UA was ordered. Negative for pyuria. Physical exam General: Alert, Oriented x3, Cooperative HEENT: Atraumatic, PERRLA, EOMI, Normocephalic. No nystagmus Oral: Oral mucosa moist. No Gingival or Mucosal Lesions/ Ulcerations Neck: Supple, No JVD, Negative Carotid Bruits Lungs: Air entry equal in bilateral lung bases. No crepitation/rhonchi Cardiovascular: Regular rate, Regular Rhythm, Normal S1, Normal S2, No murmurs Abdomen: Bowel Sounds Present, Soft, Non Tender, Non-Distended : No renal angle tenderness. No suprapubic tenderness. Extremities: No edema, Capillary Refill Less than 3 Seconds Skin: No rashes, No breakdown Musculoskeletal: No Tenderness to Palpation of Joints or Extremities. Muscle strength 5/5 at major joints. No gait incoordination. Neurological: Cranial nerves II-XII grossly intact, DTR 2+/4 and Symmetrical, Neuro grossly intact Psych/Mental Status: Normal Affect, Appropriate ABG / Lab / Microbiology Data Result Diagrams: 01/16/22 05:40 01/16/22 05:40 Discharge Plan Admission Admit Date/Time: 01/15/22 14:34 Primary Reason for Your Visit: Blurred vision Attending Provider: George Hayward Instructions Additional Instructions / Restrictions: * Follow up with your [employer] in regards to your blurry vision. Discharge Orders/Prescriptions Prescriptions: Continued albuterol sulfate 2.5 MG/3 ML solution for nebulization 2.5 mg inhalation Q6H PRN PRN (Reason: Dyspnea) RF: 0 omeprazole 20 MG capsule 20 mg PO DAILY RF: 0 chlorthalidone 50 MG tablet 25 mg PO QODAY RF: 0 gabapentin 300 MG capsule 600 mg PO BID RF: 0 calcium 600 mg Capsule 600 mg PO QHS RF: 0 tizanidine 2 mg Tablet 2 mg PO QHS PRN PRN (Reason: Muscle Spasm) RF: 0 trazodone 50 mg Tablet 50 mg PO QHS RF: 0 acetaminophen 650 mg Tablet Extended Release 1,300 mg PO QHS RF: 0 levothyroxine 125 mcg tablet 125 mcg PO DAILY RF: 0 metoprolol succinate 25 mg tablet extended release 24 hr 25 mg PO DAILY RF: 0 magnesium 200 mg Tablet 400 mg PO QHS RF: 0 naproxen sodium [Aleve] 220 mg Capsule 220 mg PO BID PRN (Reason: Pain) RF: 0 melatonin 10 mg Tablet 30 mg PO QHS RF: 0 Referrals / Follow Up: ELIZABETH ALLEN [Other] - Within 2 Weeks Disposition Disposition (needs filled in before D/C Order can be placed): Home, Self Care Charges/Coding Visit Charges OBSV E&M: 81555 Observation care discharge
== END 2022-01-16 13:13 | disposition home or self-care (01) ==
LOC: ED 14:42 → PCU 14:46
PROVIDERS: Emergency Medicine; Admitting Provider Internal Medicine; Emergency Provider Emergency Medicine; Visit Provider Internal Medicine
DX: R42 Dizziness and giddiness (principal); E66.01 Morbid (severe) obesity due to excess calories; Z68.42 Body mass index [BMI] 45.0-49.9, adult; E87.6 Hypokalemia; I10 Essential (primary) hypertension; M79.7 Fibromyalgia; H53.8 Other visual disturbances; R00.2 Palpitations; Z79.899 Other long term (current) drug therapy; K21.9 Gastro-esophageal reflux disease without esophagitis; Z85.850 Personal history of malignant neoplasm of thyroid; E89.0 Postprocedural hypothyroidism; Z79.890 Hormone replacement therapy; G89.29 Other chronic pain
CPT/HCPCS: 36415; 70450; 70551; 80048; 80053; 80061; 81001; 83036; 83735; 84100; 84443; 85025; 93005; 93306; 93880; 96372; 96374; 97166; 99218; 99251; 99284; A4216; G0378; G0463

== ENCOUNTER 2022-05-08 10:46 | Emergency (ER) | payer MEDICARE, SELFPAY ==
[2022-05-08 10:46] VITALS: BP 172/93; PULSE 69; RESP 20; TEMP 36.6; O2SAT 97; BMI 48.8
--- NOTE | 2022-05-08 11:14 | EKG12_ITS ---
Test Reason : Blood Pressure : / mmHG Vent. Rate : 062 BPM Atrial Rate : 062 BPM P-R Int : 198 ms QRS Dur : 114 ms QT Int : 454 ms P-R-T Axes : 043 -39 005 degrees QTc Int : 460 ms Normal sinus rhythm Left axis deviation Incomplete left bundle branch block Moderate voltage criteria for LVH, may be normal variant ( R in aVL , Loc product ) Abnormal ECG Confirmed by GELY JEFFRIES, ANA ([id number]), staff editor ISAIAH GUIDRY ([id number]) on 05/10/2022 12:49:19 PM Referred By: Vicky Confirmed By:ANA HONG MD
--- NOTE | 2022-05-08 11:14 | EX.ED.DYSGE1 ---
HPI History of Present Illness Chief Complaint: Nausea/Vomiting/Diarrhea Informant: patient Onset/Context/Timing Onset: Weeks (1) Timing: Intermittent Quality: nonbilious emesis Current Severity: Moderate Maximum Severity: Moderate Worsened by: nothing in particular Relieved by: nothing; no tx's given Associated Symptoms Associated Symptoms: diarrhea. racing heartbeat earlier when she got up, gone now. Narrative Narrative: Patient states she has had diarrhea 2 or 3 bouts of nonbloody, loose, nonmelanotic for the past 2 weeks or so since she started meloxicam. She is doing that medication for pain related to her fibromyalgia. She talked to her doctor and as a result she stopped it a couple days ago. She is still having morning diarrhea. A week ago she vomited, and the subsequent 4 days or so she had been feeling malaised and occasionally lightheaded without syncope. The last 2 days she had been improved but today was much worse. She presents here in the morning, she got up this morning and felt like her heart was racing and she felt lightheaded, subsequently she ended up having more vomiting that was nonbilious nonbloody, and the aforementioned diarrhea. She denies any abdominal pains through the past couple weeks. She has had a hysterectomy but no other abdominal surgeries according to her. She admits that she has a history of fibromyalgia so things are sensitive and it is hard to tell but she denies remembering any major abdominal pain. She denies any fevers or chills. No known sick contacts. Her lives with her and he does not have any of the symptoms. They drink well water but he is drinking it too. No recent antibiotics for anything. No recent travel out of the area. [facility] Medical History Chest pain Fibromyalgia GERD (gastroesophageal reflux disease) HTN (hypertension) Kidney stones Non-smoker Thyroid cancer, medullary carcinoma Home Medications albuterol sulfate 2.5 mg/3 mL (0.083 %) solution for nebulization 2.5 mg inhalation Q6H PRN PRN Dyspnea 09/14/15 [History Last Taken Unknown] chlorthalidone 50 mg tablet 25 mg PO QODAY 09/14/15 [History Last Taken 01/13/22] gabapentin 300 mg capsule 600 mg PO BID NERVE PAIN 09/14/15 [History Last Taken 01/14/22] omeprazole 20 mg capsule,delayed release 20 mg PO DAILY 09/14/15 [History Last Taken 01/14/22] acetaminophen 650 mg tablet,extended release 1,300 mg PO QHS PRN Pain 01/15/22 [History Last Taken 01/14/22] calcium 600 mg capsule 600 mg PO QHS 01/15/22 [History Last Taken 01/14/22] levothyroxine 125 mcg tablet 100 mcg PO DAILY 01/15/22 [History Last Taken 01/15/22] magnesium 200 mg tablet 400 mg PO QHS 01/15/22 [History Last Taken 01/14/22] melatonin 10 mg tablet 30 mg PO QHS 01/15/22 [History Last Taken 01/14/22] metoprolol succinate 25 mg tablet,extended release 24 hr 25 mg PO DAILY 01/15/22 [History Last Taken 01/15/22] naproxen sodium 220 mg capsule (Aleve) 220 mg PO BID PRN Pain 01/15/22 [History Last Taken Unknown] tizanidine 2 mg tablet 2 mg PO QHS PRN PRN Muscle Spasm 01/15/22 [History Last Taken 01/14/22] trazodone 50 mg tablet 50 mg PO QHS 01/15/22 [History Last Taken 01/14/22] loratadine 10 mg PO/SL 1XD 05/08/22 [History Last Taken Unknown] ondansetron 4 mg disintegrating tablet 8 mg PO Q8H PRN PRN Nausea #16 tabs 05/08/22 [Rx Last Taken Unknown] Allergy/AdvReac Type Severity Reaction Status Date / Time acetaminophen [From Percocet] Allergy Itching Verified 05/08/22 10:50 citalopram hydrobromide Allergy Itching Verified 05/08/22 10:50 [From Celexa] duloxetine HCl Allergy Itching Verified 05/08/22 10:50 [From Cymbalta] Iodinated Contrast Media [CT] Allergy Hives Verified 05/08/22 10:50 milnacipran HCl Allergy Itching Verified 05/08/22 10:50 [From Savella] oxycodone HCl [From Percocet] Allergy Itching Verified 05/08/22 10:50 sertraline HCl [From Zoloft] Allergy Itching Verified 05/08/22 10:50 shellfish derived Allergy Hives Verified 05/08/22 10:50 Sulfa (Sulfonamide Allergy Hives Verified 05/08/22 10:50 Antibiotics) tramadol Allergy Itching Verified 05/08/22 10:50 Family History (Updated 01/15/22 @ 17:[address] Kayli Osman, DO) Other CAD (coronary artery disease) Hypertension Surgical History H/O thyroidectomy H/O: hysterectomy History of right shoulder replacement Hx of total knee replacement Social History Smoking Status: Never smoker alcohol intake: current alcohol intake frequency: holidays/special occasions only substance use type: does not use ROS ROS ED Constitutional Constitutional ED: Denies chills or fever(s) Eyes Eyes: Reports blurry vision bilateral (1-2 mos); Denies change in vision or diplopia ENT ENT ED: Denies rhinorrhea or sore throat Cardiovascular Cardiovascular: Reports racing heartbeat; Denies chest pain Respiratory/Chest Respiratory/Chest: Denies cough or dyspnea Gastrointestinal Gastrointestinal: Reports diarrhea, nausea and vomiting; Denies abdominal pain or melena Genitourinary Genitourinary ED: Denies dysuria or hematuria Musculoskeletal Musculoskeletal: Reports back pain; Denies neck pain Integumentary Denies abscess or rash Neurologic Neurologic: Denies headache(s), paresthesias or weakness Psychiatric Psychiatric: Denies anxiety or suicidal thoughts EXAM Physical Exam Const Vital Signs: 05/08/22 10:46 05/08/22 12:16 05/08/22 13:00 Temperature 97.9 F 98.1 F Temperature Source Temporal Oral Pulse Rate 69 76 62 Respiratory Rate 20 H 15 12 Blood Pressure 172/93 H 153/66 H 153/73 H Blood Pressure Mean 119 95 99 Pulse Ox 97 96 97 Oxygen Delivery Method Room Air Room Air 05/08/22 14:00 Temperature 97 F L Temperature Source Temporal Pulse Rate 72 Respiratory Rate 18 Blood Pressure 153/71 H Blood Pressure Mean 98 Pulse Ox 97 Oxygen Delivery Method Room Air Positive well nourished, well developed and obese General Appearance ED: well developed and NAD Nutritional Appearance: obese HEENT Reports moist mucous membranes normocephalic and atraumatic Eyes PERRL and EOMs intact bilaterally Neck full ROM and supple Resp normal respiratory effort and clear to auscultation bilaterally Cardio regular rate, regular rhythm and no murmurs Rate: Negative for tachycardic GI non-tender and non-distended Auscultation: normoactive bowel sounds Palpation: soft Back/Spine no CVA tenderness General Back: other FROM but painful w/r/t low back, chronic & stable per pt Extremity normal to inspection General Extremety ED: Negative for edema, pulses abnormal or tenderness General Extremity: Negative for edema or pulses abnormal Neuro oriented x3, CN's II-XII intact bilaterally and no sensory deficits noted Sensorium / Orientation: awake and alert Motor Exam: strength 5/5 throughout Skin no rashes or lesions noted and no wounds MDM MDM MDM Narrative Medical decision making narrative: Patient has a wide differential for vomiting, occasional diarrhea. Cardiac etiologies are in the differential here for an older female with hypertension of 172/93 in triage. Her EKG and troponin are unremarkable except for a stable left anterior fascicular block. 2 view chest x-ray my interpretation shows nothing acute. No basilar pneumonias. Her labs are otherwise unremarkable, including her white blood count of 6.1, arguing against an acute bacterial infection. Her abdomen is very benign and I do not think she needs advanced imaging of it right now. She was treated IV fluids and Zofran, she felt much better on reevaluation. Her urinalysis is negative. She was not able to have any diarrhea in the emergency department, I think if it persists it would be reasonable to have her do an enteric bacterial panel to rule out bacterial causes, but since I think they are less likely I will not treating her empirically with any antibiotics. We will discharge her home with Zofran and close outpatient follow-up along with stool specimen collection kit and prescription for that test to go to her PCP. She is comfortable with that plan. Lab Data Attestation: I reviewed the patient's lab results. Labs: Laboratory Results - last 24 hr 05/08/22 05/08/22 05/08/22 11:23 11:23 13:54 WBC 6.1 RBC 4.41 Hgb 10.8 L Hct 33.7 L MCV 76.4 L MCH 24.5 L MCHC 32.0 RDW Std Deviation 39.8 RDW Coeff of Irma 14.4 Plt Count 205 MPV 8.4 Immature Gran % (Auto) 0.700 Neut % (Auto) 77.2 H Lymph % (Auto) 12.4 L [place] % (Auto) 7.7 Eos % (Auto) 1.8 Baso % (Auto) 0.2 Absolute Neuts (auto) 4.7 Absolute Lymphs (auto) 0.76 L Nucleated RBC % 0 Sodium 134 L Potassium 3.4 L Chloride 98 Carbon Dioxide 30.0 Anion Gap 6 BUN 14 Creatinine 1.01 Estim Creat Clear Calc 37.76 Est GFR (MDRD) Af Amer 70 Est GFR (MDRD) Non-Af 58 L BUN/Creatinine Ratio 13.9 Glucose 127 H Calcium 8.7 Total Bilirubin 0.40 AST 22 ALT 21 Alkaline Phosphatase 110 Troponin I High Sens 5 Total Protein 7.4 Albumin 3.2 Globulin 4.2 Albumin/Globulin Ratio 0.8 L Lipase 104 Urine Color Straw Urine Clarity Clear Urine pH 7.0 Ur Specific [place] 1.005 Urine Protein Negative Urine Glucose (UA) Normal Urine Ketones Negative Urine Occult Blood Negative Urine Nitrite Negative Urine Bilirubin Negative Urine Urobilinogen Normal Ur Leukocyte Esterase Negative Urine RBC 0 SEEN Urine WBC 0 SEEN Ur Squamous Epith Cells 0 SEEN Urine Bacteria 0 SEEN Urine Mucus 0 SEEN Radiography Diagnostic Testing: Clinical Impression(s) from Imaging Studies Chest X-Ray 05/08/22 11:55 IMPRESSION: Mild increased markings at the lung bases suggestive of linear atelectasis and/or scarring. Electronically Signed: Tae Juarez MD at 12:15 EDT , Rhythm Strip Rhythm Strip: Sinus Rhythm Rate: 65 Ectopy: None EKG Initial EKG: Attestation: I personally reviewed and interpreted this EKG as follows: Interpretation: Sinus Rhythm, No Acute Injury Pattern, LAFB and Inverted T-Waves (inf) Prior EKG tracings: available for review Prior: Unchanged Discharge Plan Triage Chief Complaint: Nausea/Vomiting/Diarrhea ED Provider: Michael Perry Dx/Rx/DC Orders Clinical Impression: Nausea, vomiting, and diarrhea, Blurred vision Instructions: ED Diarrhea, Unknown Cause, ED Vomiting and Diarrhea ... Prescriptions: New ondansetron [ondansetron] 4 mg tablet,disintegrating 8 mg PO Q8H PRN PRN (Reason: Nausea) Qty: 16 0RF No Action albuterol sulfate 2.5 MG/3 ML solution for nebulization 2.5 mg inhalation Q6H PRN PRN (Reason: Dyspnea) omeprazole 20 MG capsule 20 mg PO DAILY chlorthalidone 50 MG tablet 25 mg PO QODAY gabapentin 300 MG capsule 600 mg PO BID calcium 600 mg Capsule 600 mg PO QHS tizanidine 2 mg Tablet 2 mg PO QHS PRN PRN (Reason: Muscle Spasm) trazodone 50 mg Tablet 50 mg PO QHS acetaminophen 650 mg Tablet Extended Release 1,300 mg PO QHS PRN (Reason: Pain) levothyroxine 125 mcg tablet 100 mcg PO DAILY Label Comments: TAKE 1 TABLET BY MOUTH ONCE DAILY metoprolol succinate 25 mg tablet extended release 24 hr 25 mg PO DAILY magnesium 200 mg Tablet 400 mg PO QHS naproxen sodium [Aleve] 220 mg Capsule 220 mg PO BID PRN (Reason: Pain) melatonin 10 mg Tablet 30 mg PO QHS loratadine 10 mg PO/SL 1XD Primary Care Provider: [facility] Doctor,Out of Referrals: [facility] Doctor,Out of [Primary Care Provider] - Doctor,Your [STAFF PHYSICIAN] - 3-5 Days if not improving Disposition Disposition: Home, Self Care
[2022-05-08 11:30] LABS: Absolute Lymphocyte Count 0.76 X10^3/uL (0.83-4.51); Absolute Neutrophil Count 4.7 X10^3/uL (2.0-7.7); Basophil# 0.01 X10^3/uL; Basophil% 0.2 % (0-1); Eosinophil# 0.11 X10^3/uL; Eosinophils% 1.8 % (0-5); Hematocrit 33.7 % (37-47); Hemoglobin 10.8 g/dL (12.0-15.0); Lymphocyte # 0.76 X10^3/ul (0.83-4.51); Lymphocyte % 12.4 % (19-41); Mean Corpuscular Hgb 24.5 pg (27.0-32.0); Mean Corpuscular Volume 76.4 fL (81-99); Mean Platelet Vol. 8.4 fl (6.2-12.0); Monocyte# 0.47 X10^3/uL; Monocyte% 7.7 % (0-10); NRBC Flagged by Analyzer 0 % (0-5); Neutrophil # 4.74 X10^3/uL (2.7-7.7); Neutrophil % 77.2 % (47-70); Platelet Count 205 K/mm3 (150-450); RBC Distribution Width CV 14.4 % (11.6-14.6); RBC Distribution Width SD 39.8 fl (35.1-43.9); Red Blood Count 4.41 M/mm3 (4.2-5.4); White Blood Count 6.1 K/mm3 (4.4-11.0)
[2022-05-08] MEDS: 0.9% Normal Saline 1,000 ML 250 ML IV (11:40)
[2022-05-08] MEDS: Ondansetron 4 MG/2 ML Vial IV (11:40)
[2022-05-08 11:49] LABS: ALB/GLOB Ratio 0.8 RATIO (0.9-2.4); AST(SGOT) 22 U/L (15-37); Alanine Aminotransfer ALT/SGPT 21 U/L (13-56); Albumin, Serum 3.2 g/dL (3.2-5.0); Alkaline Phosphatase 110 U/L (45-117); Anion Gap 6 (5-15); BUN 14 mg/dL (7-18); BUN/Creat Ratio 13.9 RATIO (10-20); Calcium,Total 8.7 mg/dL (8.5-10.1); Chloride 98 mmol/L (98-107); Creatinine, Serum 1.01 mg/dL (0.55-1.02); EST Glomerular Filtration Rate 58 mL/min (>60); Est Glom Filt Rate - Afr Amer 70 mL/min (>60); Estimated Creatinine Clearance 37.76 ml/min; Globulin 4.2 g/dL (2.2-4.2); Glucose 127 mg/dL (74-106); Lipase 104 U/L (73-393); Potassium 3.4 mmol/L (3.5-5.1); Protein, Total 7.4 g/dL (6.4-8.2); Sodium Level 134 mmol/L (136-145); Troponin-I HS 5 pg/mL (3.0-54.0)
--- NOTE | 2022-05-08 11:55 | RAD_ITS ---
STUDY: X-RAY CHEST REASON FOR EXAM: Female, 67 years old. Nausea, weakness TECHNIQUE: PA and lateral views of the chest. COMPARISON: None. FINDINGS: EKG electrodes are seen. Mild increased linear markings at the lung bases suggestive of linear atelectasis and/or scarring. There is no demonstrated pleural abnormality. Normal size heart. Normal mediastinum and mario. Normal visualized pulmonary arteries. There is atherosclerotic calcification of the aortic arch with tortuosity. There are diffuse degenerative changes of the visualized thoracic spine. Prior right total shoulder replacement. There is no demonstrated abnormality of the visualized soft tissue structures of the upper abdomen. RAD/Chest PA and Lateral IMPRESSION: Mild increased markings at the lung bases suggestive of linear atelectasis and/or scarring. Electronically Signed: Tae Juarez MD at 12:15 EDT ,
[2022-05-08 12:16] VITALS: BP 153/66; PULSE 76; RESP 15; TEMP 36.7; O2SAT 96
[2022-05-08 13:00] VITALS: BP 153/73; PULSE 62; RESP 12; O2SAT 97
[2022-05-08 14:00] VITALS: BP 153/71; PULSE 72; RESP 18; TEMP 36.1; O2SAT 97
[2022-05-08 14:00] LABS: Bacteria 0 SEEN /hpf (None Seen); Mucous, Urine 0 SEEN /hpf (<or=2+); Red Blood Cells-Urine 0 SEEN /hpf (0-5); Squamous Epithelial Cells - UA 0 SEEN /hpf (5-10); White Blood Cells 0 SEEN /hpf (0-5)
[2022-05-08 14:02] LABS: Color, Urine Straw (Yellow); Glucose, Dipstick Normal (Normal); Ketone-Dipstick Negative (Negative); Leukocyte Esterase-Dipstick Negative /ul (Negative); Nitrite-Dipstick Negative (Negative); Occult Blood-Urine Negative /ul (Negative); Protein-Dipstick Negative (Negative); Specific Gravity, Urine 1.005 (1.002-1.030); Urine Bilirubin Dipstick Negative (Negative); Urine Clarity Clear (Clear); Urine Urobilinogen Normal (Normal)
[2022-05-08 15:29] VITALS: BP 149/78; PULSE 78
== END 2022-05-08 15:32 | disposition home or self-care (01) ==
PROVIDERS: Emergency Provider Emergency Medicine; Visit Provider Emergency Medicine
DX: R11.2 Nausea with vomiting, unspecified (principal); H53.8 Other visual disturbances; I44.4 Left anterior fascicular block; I10 Essential (primary) hypertension; R19.7 Diarrhea, unspecified; M79.7 Fibromyalgia; Z87.442 Personal history of urinary calculi; Z85.850 Personal history of malignant neoplasm of thyroid; K21.9 Gastro-esophageal reflux disease without esophagitis; Z79.899 Other long term (current) drug therapy; E66.9 Obesity, unspecified
CPT/HCPCS: 71046; 80053; 81001; 83690; 84484; 85025; 87506; 93005; 96361; 96374; 99284; J7030; A4216; J2405

== ENCOUNTER → 2022-07-03 | Outpatient (CLI) | payer MEDICARE, SELFPAY ==
[2022-07-03 16:33] LABS: Absolute Lymphocyte Count 0.97 X10^3/uL (0.83-4.51); Absolute Neutrophil Count 4.1 X10^3/uL (2.0-7.7); Basophil# 0.02 X10^3/uL; Basophil% 0.4 % (0-1); Eosinophil# 0.14 X10^3/uL; Eosinophils% 2.5 % (0-5); Hematocrit 33.7 % (37-47); Hemoglobin 10.2 g/dL (12.0-15.0); Lymphocyte # 0.97 X10^3/ul (0.83-4.51); Lymphocyte % 17.1 % (19-41); Mean Corp Hgb Conc 30.3 g/dL (32-36); Mean Corpuscular Volume 76.1 fL (81-99); Mean Platelet Vol. 8.9 fl (6.2-12.0); Monocyte# 0.41 X10^3/uL; Monocyte% 7.2 % (0-10); NRBC Flagged by Analyzer 0 % (0-5); Neutrophil # 4.11 X10^3/uL (2.7-7.7); Neutrophil % 72.4 % (47-70); Platelet Count 260 K/mm3 (150-450); RBC Distribution Width SD 41.1 fl (35.1-43.9); Red Blood Count 4.43 M/mm3 (4.2-5.4); White Blood Count 5.7 K/mm3 (4.4-11.0)
[2022-07-03 17:56] LABS: ALB/GLOB Ratio 0.8 RATIO (0.9-2.4); AST(SGOT) 18 U/L (15-37); Alanine Aminotransfer ALT/SGPT 18 U/L (13-56); Albumin, Serum 3.3 g/dL (3.2-5.0); Alkaline Phosphatase 113 U/L (45-117); Anion Gap 9 (5-15); BUN 12 mg/dL (7-18); Calcium,Total 7.9 mg/dL (8.5-10.1); Chloride 101 mmol/L (98-107); EST Glomerular Filtration Rate 58 mL/min (>60); Est Glom Filt Rate - Afr Amer 71 mL/min (>60); Ferritin 10 ng/mL (8-252); Globulin 4.4 g/dL (2.2-4.2); Glucose 110 mg/dL (74-106); Iron 28 ug/dL (50-170); Iron Binding Capacity,Total 365 ug/dL (250-450); Potassium 3.3 mmol/L (3.5-5.1); Protein, Total 7.7 g/dL (6.4-8.2); Sodium Level 138 mmol/L (136-145)
== END | disposition home or self-care (01) ==
LOC: BIMLAB 14:28
PROVIDERS: Visit Provider Internal Medicine
DX: D64.9 Anemia, unspecified (principal); I10 Essential (primary) hypertension; E03.9 Hypothyroidism, unspecified
CPT/HCPCS: 36415; 80053; 82728; 83540; 83550; 84443; 85025

== ENCOUNTER 2022-09-12 14:40 | Outpatient (CLI) | payer MEDICARE, SELFPAY ==
[2022-09-12 16:42] LABS: Absolute Lymphocyte Count 1.02 X10^3/uL (0.83-4.51); Absolute Neutrophil Count 4.6 X10^3/uL (2.0-7.7); Basophil# 0.02 X10^3/uL; Basophil% 0.3 % (0-1); Eosinophil# 0.24 X10^3/uL; Eosinophils% 3.7 % (0-5); Hematocrit 35.7 % (37-47); Hemoglobin 10.7 g/dL (12.0-15.0); Lymphocyte # 1.02 X10^3/ul (0.83-4.51); Lymphocyte % 15.8 % (19-41); Mean Corpuscular Hgb 22.9 pg (27.0-32.0); Mean Corpuscular Volume 76.3 fL (81-99); Mean Platelet Vol. 9.6 fl (6.2-12.0); Monocyte# 0.52 X10^3/uL; NRBC Flagged by Analyzer 0 % (0-5); Neutrophil # 4.64 X10^3/uL (2.7-7.7); Neutrophil % 71.7 % (47-70); Platelet Count 260 K/mm3 (150-450); RBC Distribution Width CV 15.9 % (11.6-14.6); RBC Distribution Width SD 44.3 fl (35.1-43.9); Red Blood Count 4.68 M/mm3 (4.2-5.4); White Blood Count 6.5 K/mm3 (4.4-11.0)
[2022-09-12 17:09] LABS: ALB/GLOB Ratio 0.8 RATIO (0.9-2.4); AST(SGOT) 19 U/L (15-37); Alanine Aminotransfer ALT/SGPT 18 U/L (13-56); Albumin, Serum 3.4 g/dL (3.2-5.0); Alkaline Phosphatase 104 U/L (45-117); Anion Gap 7 (5-15); BUN 11 mg/dL (7-18); BUN/Creat Ratio 10.2 RATIO (10-20); Calcium,Total 8.4 mg/dL (8.5-10.1); Chloride 101 mmol/L (98-107); Creatinine, Serum 1.08 mg/dL (0.55-1.02); EST Glomerular Filtration Rate 53 mL/min (>60); Est Glom Filt Rate - Afr Amer 65 mL/min (>60); Globulin 4.3 g/dL (2.2-4.2); Glucose 133 mg/dL (74-106); Potassium 3.4 mmol/L (3.5-5.1); Protein, Total 7.7 g/dL (6.4-8.2); Sodium Level 137 mmol/L (136-145); Thyroid Stim Hormone (TSH) 3.15 uIU/mL (0.358-3.74)
[2022-09-13 10:52] LABS: Ferritin 13 ng/mL (8-252); Iron 30 ug/dL (50-170); Iron Binding Capacity,Total 346 ug/dL (250-450)
== END 2022-09-12 23:59 | disposition home or self-care (01) ==
LOC: BIMLAB 14:41
PROVIDERS: PCP Internal Medicine; Referring Provider Internal Medicine; Visit Provider Internal Medicine
DX: I10 Essential (primary) hypertension (principal); D64.9 Anemia, unspecified; E03.9 Hypothyroidism, unspecified
CPT/HCPCS: 36415; 80053; 82728; 83540; 83550; 84443; 85025

== ENCOUNTER 2022-09-19 13:59 | Outpatient (CLI) | payer MEDICARE, SELFPAY ==
[2022-09-19] MEDS: 0.9% NaCl Peripheral Flush Adult/Peds IV (14:13)
[2022-09-19] MEDS: 0.9% NaCl IVPB Med Flush (250 mL) 15 ML IV (14:13)
[2022-09-19 14:25] VITALS: BP 131/66; PULSE 80; TEMP 36.9; O2SAT 95
[2022-09-19 15:15] VITALS: BP 130/54; PULSE 66; O2SAT 97
== END 2022-09-19 23:59 | disposition home or self-care (01) ==
LOC: MEDOUTP 14:01
PROVIDERS: PCP Internal Medicine; Referring Provider Internal Medicine; Visit Provider Internal Medicine
DX: D50.9 Iron deficiency anemia, unspecified (principal)
CPT/HCPCS: 96372; J1756; J7050; A4216

== ENCOUNTER → 2022-09-21 | Outpatient (CLI) | payer MEDICARE, SELFPAY ==
[2022-09-21 10:33] VITALS: BP 145/57; PULSE 71; RESP 16; TEMP 36.4; O2SAT 97
[2022-09-21] MEDS: 0.9% NaCl Peripheral Flush Adult/Peds IV (10:42)
[2022-09-21] MEDS: 0.9% NaCl IVPB Med Flush (250 mL) 15 ML IV (10:48)
== END | disposition home or self-care (01) ==
LOC: MEDOUTP 10:24
PROVIDERS: PCP Internal Medicine; Referring Provider Internal Medicine; Visit Provider Internal Medicine
DX: D64.9 Anemia, unspecified (principal)
CPT/HCPCS: 96372; J1756; J7050; A4216

== ENCOUNTER → 2022-09-24 | Outpatient (CLI) | payer MEDICARE, SELFPAY ==
[2022-09-24] MEDS: 0.9% NaCl Peripheral Flush Adult/Peds IV (13:32)
[2022-09-24] MEDS: 0.9% NaCl IVPB Med Flush (250 mL) 15 ML IV (13:33)
[2022-09-24 13:40] VITALS: BP 107/67; PULSE 85; TEMP 36.4; O2SAT 96
== END | disposition home or self-care (01) ==
LOC: MEDOUTP 12:53
PROVIDERS: PCP Internal Medicine; Referring Provider Internal Medicine; Visit Provider Internal Medicine
DX: D64.9 Anemia, unspecified (principal)
CPT/HCPCS: 96372; J1756; J7050; A4216